=== PATIENT | male | born 1995 | race Caucasian/White ===

== ENCOUNTER 2017-07-31 16:58 | Emergency (ER) | payer OTHER ==
[~2017-07-31] VITALS: Ht 182.9 cm; Wt 90.3 kg
[2017-07-31] MEDS ORDERED: DOXYCYCLINE 10100 MG PO (17:24)
== END 2017-07-31 17:58 | disposition home or self-care (01) ==
LOC: ER 16:58
DX: L03.114 Cellulitis of left upper limb (principal); L03.113 Cellulitis of right upper limb; F15.10 Other stimulant abuse, uncomplicated